=== PATIENT | male | born 1960 | race American Indian/Alaskan Native ===

== ENCOUNTER 2017-08-09 15:09 | Emergency (ER) | payer SELFPAY ==
[2017-08-09 19:02] VITALS: BP 139/86
[2017-08-09] MEDS ORDERED: SUDAFED 12 HR PO PRN (19:46)
--- NOTE | 2017-08-09 19:53 | Emergency Department Report ---
HPI - General Chief Complaint: Sore Throat Time Seen by Provider: 08/09/17 18:56 - HPI HPI: Patient is a 56-year-old male who presents to ED complaining of congestion and throat pain 3 weeks. Patient states the pain resolved but reappeared about 3 days ago. Patient states he feels that his chest is congested and has some dry intermittent mild cough . Admits some pain with swallowing. Patient admits dry, nonproductive cough. He denies taking any medications or recent sick contact. Patient denies fever/chills /nausea/vomiting/abdominal pain/shortness of breath/ chest pain/headache. ED Past Medical Hx - Past Medical History Previous Medical History?: No - Surgical History Past Surgical History?: No - Social History Smoking Status: Never Smoker Substance Use Type: Marijuana - Medications Home Medications: Home Medications Medication Instructions Recorded Confirmed Last Taken Type Azithromycin [Zithromax] 250 mg PO DAILY #1 pack 08/09/17 Unknown Rx Pseudoephedrine ER [Sudafed 12 Hr] 120 mg PO DAILY PRN #20 tablet 08/09/17 Unknown Rx ED Review of Systems ROS: Stated complaint: SORE THROAT Other details as noted in HPI Constitutional: denies: chills, fever Eyes: denies: eye pain, eye discharge, vision change ENT: denies: ear pain, throat pain Respiratory: denies: cough, shortness of breath, wheezing Cardiovascular: denies: chest pain, palpitations Endocrine: no symptoms reported Gastrointestinal: denies: abdominal pain, nausea, diarrhea Genitourinary: denies: urgency, dysuria Musculoskeletal: denies: back pain, joint swelling, arthralgia Skin: denies: rash, lesions Neurological: denies: headache, weakness, paresthesias Psychiatric: denies: anxiety, depression Hematological/Lymphatic: denies: easy bleeding, easy bruising Physical Exam - Physical Exam Vital Signs: Vital Signs 08/09/17 08/09/17 15:20 19:00 Temperature 98.1 F Pulse Rate 74 63 Respiratory 16 Rate Blood Pressure 118/82 139/86 O2 Sat by Pulse 100 100 Oximetry Physical Exam: GENERAL: Alert and oriented x3, no apparent distress, Normal Gait, atraumatic. HEAD: Head is normocephalic and a-traumatic. EYES: Extra ocular muscles are intact. Pupils are equal, round, and reactive to light and accommodation. EARS: symetrical, atraumatic, non tender, ear canal clear and moderate cerumen, tympanic membrance non inflamed. gross auditory nml bilaterally. NOSE: Nose symetrical, Nontender,Nares appeared normal. MOUTH:Mouth is well hydrated and without lesions. Tonsils nonerythematous or swollen, Uvula midline, Tongue not elevated. Mucous membranes are moist. Posterior pharynx clear, no exudate or lesions. Patent airways. Postnasal drip NECK: Supple. Non edematous, No carotid bruits. No lymphadenopathy or thyromegaly. No C-spine tenderness LUNGS: Symetrical with respiration, No wheezing, no rales or crackles, CTAB. HEART: S1, S2 present, regular rate and rhythm without murmur, no rubs, no gallops. Non tender to palpation NEUROLOGIC: The patient is cooperative with no focal neurologic deficits. Cranial nerves II through XII are grossly intact. Normal speech. SKIN: Warm and dry, No lesions, No ulceration or induration present. ED Course Vital Signs 08/09/17 08/09/17 15:20 19:00 Temperature 98.1 F Pulse Rate 74 63 Respiratory 16 Rate Blood Pressure 118/82 139/86 O2 Sat by Pulse 100 100 Oximetry ED Medical Decision Making - Medical Decision Making 56-year-old male presents with URI with pharyngitis. ED course: Rapid strep tests ordered rapid strep test negative Patient received Magic mouthwash, pseudoephedrine Vital signs stable patient is in no acute or respiratory distress. Discussed findings with patient about the negative strep. Discussed with the patient to take his medication as prescribed Discussed with patient follow-up with primary care physician. Patient verbally states he understands and will comply to follow-up. Critical care attestation.: If time is entered above; I have spent that time in minutes in the direct care of this critically ill patient, excluding procedure time. ED Disposition Clinical Impression: URI (upper respiratory infection) Qualifiers: URI type: unspecified URI Qualified Code(s): J06.9 - Acute upper respiratory infection, unspecified Pharyngitis Qualifiers: Pharyngitis/tonsillitis etiology: unspecified etiology Qualified Code(s): J02.9 - Acute pharyngitis, unspecified Disposition: TO HOME OR SELFCARE Is pt being admited?: No Does the pt Need Aspirin: No Condition: Stable Instructions: Upper Respiratory Infection (ED), Pharyngitis (ED) Additional Instructions: The strep test test is negative Take your medication as prescribed Follow-up with your primary care physician Prescriptions: Azithromycin [Zithromax] 250 mg PO DAILY #1 pack Pseudoephedrine ER [Sudafed 12 Hr] 120 mg PO DAILY PRN #20 tablet PRN Reason: Allergy Symptoms Referrals: MARU QUESADA MD [Primary Care Provider] - 3-5 Days Forms: Accompanied Note, Work/School Release Form(ED) Time of Disposition: 20:46
[2017-08-09] MEDS ORDERED: MAGIC MOUTHWASH PO ONE (20:46)
== END 2017-08-09 20:50 | disposition home or self-care (01) ==
LOC: ED 15:09
DX: J02.9 Acute pharyngitis, unspecified (principal); J06.9 Acute upper respiratory infection, unspecified; F12.10 Cannabis abuse, uncomplicated
CPT/HCPCS: 87116; 87430; 99282

== ENCOUNTER 2019-04-19 09:11 | Emergency (ER) | payer OTHER ==
[2019-04-19 09:26] VITALS: BP 131/74
[2019-04-19] MEDS ORDERED: IBUPROFEN PO ONE (10:24)
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
== END 2019-04-19 12:11 | disposition home or self-care (01) ==
LOC: ED 09:11
DX: S16.1XXA Strain of muscle, fascia and tendon at neck level, initial encounter (principal); F12.10 Cannabis abuse, uncomplicated; F17.200 Nicotine dependence, unspecified, uncomplicated; Z79.899 Other long term (current) drug therapy; Z79.1 Long term (current) use of non-steroidal anti-inflammatories (NSAID); V87.7XXA Person injured in collision between other specified motor vehicles (traffic), initial encounter; Y93.89 Activity, other specified; Y92.488 Other paved roadways as the place of occurrence of the external cause; Y99.8 Other external cause status
CPT/HCPCS: 72040; 99283

== ENCOUNTER 2019-08-19 07:11 | Emergency (ER) | payer MEDICARE, OTHER ==
[2019-08-19 07:25] VITALS: BP 147/89
[2019-08-19] MEDS ORDERED: dexAMETHasone 20 MG/5 ML VIAL IM ONE (08:19)
[2019-08-19] MEDS ORDERED: KETOROLAC 30 MG/1 ML INJ IM ONE (08:19)
--- NOTE | 2019-08-19 08:46 | Emergency Department Report ---
ED Neck Pain/Injury HPI - General Chief Complaint: Neck Pain/Injury Stated Complaint: RT NECK/SHOULDER EXTREME PAIN Time Seen by Provider: 08/19/19 08:08 Mode of arrival: Ambulatory Limitations: No Limitations - History of Present Illness Initial Comments: 58-year-old male presents to ED with neck pain. Patient states pain has been ongoing 3 days. States pain is radiating over into the right shoulder. Patient reports associated numbness and tingling in the right neck and shoulder. Denies any weakness in his arms or legs. Patient denies any numbness or tingling in the right upper arm, right forearm, right hand, or right fingers. He reports he was cleaning and believed that he may have "pulled something" in his neck and shoulder by lifting something heavy with his right hand. MD Complaint: neck pain -: days(s) (3) Radiation: right shoulder Severity: moderate Quality: aching, tingling Consistency: constant Improves With: none Worsens With: none Context: lifting Associated Symptoms: tingling. denies: headache, weakness Treatments Prior to Arrival: cold therapy - Related Data Previous Rx's Medication Instructions Recorded Last Taken Type Azithromycin [Zithromax] 250 mg PO DAILY #1 pack 08/09/17 Unknown Rx Pseudoephedrine ER [Sudafed 12 Hr] 120 mg PO DAILY PRN #20 tablet 08/09/17 Unknown Rx Ibuprofen [Motrin 800 MG tab] 800 mg PO Q8HR PRN #10 tablet 04/19/19 Unknown Rx methOCARBAMOL [Robaxin TAB] 500 mg PO Q6H PRN #14 tablet 04/19/19 Unknown Rx traMADol [Ultram] 50 mg PO Q6HR PRN #12 tablet 04/19/19 Unknown Rx Naproxen [Naprosyn] 500 mg PO BID #20 tablet 08/19/19 Unknown Rx methOCARBAMOL [Robaxin TAB] 500 mg PO Q8HR PRN #20 tablet 08/19/19 Unknown Rx traMADol [Ultram] 50 mg PO Q6HR PRN #7 tablet 08/19/19 Unknown Rx Allergies Allergy/AdvReac Type Severity Reaction Status Date / Time No Known Allergies Allergy Verified 04/19/19 09:26 ED Review of Systems ROS: Stated complaint: RT NECK/SHOULDER EXTREME PAIN Other details as noted in HPI Comment: All other systems reviewed and negative Constitutional: denies: chills, fever ENT: denies: throat pain Musculoskeletal: as per HPI Neurological: paresthesias. denies: weakness ED Past Medical Hx - Past Medical History Previous Medical History?: No - Surgical History Past Surgical History?: No - Social History Smoking Status: Never Smoker Substance Use Type: None - Medications Home Medications: Home Medications Medication Instructions Recorded Confirmed Last Taken Type Azithromycin [Zithromax] 250 mg PO DAILY #1 pack 08/09/17 Unknown Rx Pseudoephedrine ER [Sudafed 12 Hr] 120 mg PO DAILY PRN #20 tablet 08/09/17 Unknown Rx Ibuprofen [Motrin 800 MG tab] 800 mg PO Q8HR PRN #10 tablet 04/19/19 Unknown Rx methOCARBAMOL [Robaxin TAB] 500 mg PO Q6H PRN #14 tablet 04/19/19 Unknown Rx traMADol [Ultram] 50 mg PO Q6HR PRN #12 tablet 04/19/19 Unknown Rx Naproxen [Naprosyn] 500 mg PO BID #20 tablet 08/19/19 Unknown Rx methOCARBAMOL [Robaxin TAB] 500 mg PO Q8HR PRN #20 tablet 08/19/19 Unknown Rx traMADol [Ultram] 50 mg PO Q6HR PRN #7 tablet 08/19/19 Unknown Rx ED Physical Exam - General Limitations: No Limitations General appearance: alert, in no apparent distress - Head Head exam: Present: atraumatic, normocephalic - Eye Eye exam: Present: normal appearance, EOMI - ENT ENT exam: Present: mucous membranes moist - Neck Neck exam: Present: normal inspection, tenderness (right lateral), full ROM - Respiratory Respiratory exam: Present: normal lung sounds bilaterally. Absent: respiratory distress - Cardiovascular Cardiovascular Exam: Present: regular rate, normal rhythm - GI/Abdominal GI/Abdominal exam: Absent: distended - Extremities Exam Extremities exam: Present: normal inspection, full ROM, tenderness (mild tenderness to right shoulder) - Back Exam Back exam: Present: normal inspection - Neurological Exam Neurological exam: Present: alert, oriented X3, CN II-XII intact, motor sensory deficit (strength 5/5 throughout; decreased sensation to light touch over the right lateral neck and right shoulder; sensation to right upper arm/ forearm/ hand/fingers normal) - Psychiatric Psychiatric exam: Present: normal affect, normal mood - Skin Skin exam: Present: warm, dry, intact, normal color. Absent: rash ED Course Vital Signs 08/19/19 08/19/19 07:23 08:35 Temperature 98.0 F Respiratory 20 18 Rate Blood Pressure 147/89 ED Medical Decision Making - Medical Decision Making - likely cervical radiculopathy - has appt w/ PCP next week for follow-up - return precautions given - Differential Diagnosis radiculopathy Critical care attestation.: If time is entered above; I have spent that time in minutes in the direct care of this critically ill patient, excluding procedure time. ED Disposition Clinical Impression: Cervical radiculopathy Disposition: DC- TO HOME OR SELFCARE Is pt being admited?: No Condition: Stable Instructions: Cervical Radiculopathy (ED) Prescriptions: Naproxen [Naprosyn] 500 mg PO BID #20 tablet methOCARBAMOL [Robaxin TAB] 500 mg PO Q8HR PRN #20 tablet PRN Reason: Muscle Spasm traMADol [Ultram] 50 mg PO Q6HR PRN #7 tablet PRN Reason: Pain Referrals: PRIMARY CAREMD [Primary Care Provider] - 3-5 Days GREGORY TILLEY MD [Staff Physician] - 3-5 Days Time of Disposition: 08:47
== END 2019-08-19 08:59 | disposition home or self-care (01) ==
LOC: ED 07:11
DX: M54.12 Radiculopathy, cervical region (principal); Z79.899 Other long term (current) drug therapy
CPT/HCPCS: 96372; 99282; J1100; J1885